=== PATIENT | female | born 1945 | race Caucasian/White ===

== ENCOUNTER 2017-09-15 00:27 | Emergency (ER) | payer BC ==
[~2017-09-15] VITALS: Ht 157.5 cm; Wt 63.5 kg
[2017-09-15 00:32] VITALS: BP_SYST 133
--- NOTE | 2017-09-15 00:40 | NUR ---
Patient AAOx4, ambulatory. Patient states having cough with SOB 2 days prior to ER visit. Patient denies fever and chest pain at this time. Patient states cough is not productive. No signs of respiratory distress noted. Patient HR at 120 in triage. Patient denies any other complaints at this time.
--- NOTE | 2017-09-15 00:40 | NUR ---
Patient to ER bed 5 to gown for evaluation. Side rails up.
--- NOTE | 2017-09-15 00:43 | NUR ---
ER Dr. Crawford at bedside examining patient.
[2017-09-15 00:57] VITALS: BP_SYST 130
--- NOTE | 2017-09-15 00:57 | NUR ---
Patient given written and verbal discharge instructions and verbalizes understanding. ER MD discussed with patient the results and treatment provided. Patient in stable condition. ID arm band removed. Rx of promethazine and biaxin given. Patient educated on pain management and to follow up with PMD. Pain Scale 0/10. Opportunity for questions provided and answered.
== END 2017-09-15 00:57 | disposition home or self-care (01) ==
LOC: SED 00:27
DX: J20.9 Acute bronchitis, unspecified (principal); M32.9 Systemic lupus erythematosus, unspecified; Z88.0 Allergy status to penicillin; Z90.49 Acquired absence of other specified parts of digestive tract
CPT/HCPCS: 99283